=== PATIENT | male | born 1990 | race Two or more races ===

== ENCOUNTER 2018-11-27 00:47 | Inpatient (IN) | payer MEDICAID ==
[~2018-11-27] VITALS: Ht 182.9 cm; Wt 73.0 kg
[2018-11-27 01:42] LABS: BASOPHILS % (AUTO) 0.6 % (0.0-2.0); EOSINOPHILS % (AUTO) 1.9 % (1.0-6.0); HEMATOCRIT 44.8 % (41-53); HEMOGLOBIN 15.4 g/dL (13.5-17.5); LYMPHOCYTES % (AUTO) 32.1 % (22.0-44.0); MEAN CORPUSCULAR HEMOGLOBIN 29.6 pg (26.0-34.0); MEAN CORPUSCULAR HGB CONC 34.5 G/dL (31.0-37.0); MEAN CORPUSCULAR VOLUME 86 fL (80-100); MONOCYTES # (AUTO) 0.3 K/uL (0.1-1.0); MONOCYTES % (AUTO) 5.5 % (2.0-9.0); NEUTROPHILS # (AUTO) 3.8 K/uL (1.8-7.7); NEUTROPHILS % (AUTO) 59.9 % (40.0-70.0); PLATELET COUNT (AUTO) 204 K/uL (150-450); RED BLOOD CELL COUNT(AUTO) 5.22 MIL/uL (4.50-5.90); RED CELL DISTRIBUTION WIDTH 13.1 % (11.5-14.5)
[2018-11-27 01:50] LABS: ANION GAP 12 mmol/L (8-16); CARBON DIOXIDE 25 mmol/L (22-29); CHLORIDE 101 mmol/L (98-107); CREATININE 1.02 mg/dL (0.60-1.30); GLOMERULAR FILTR. RATE CALC > 60 mL/min (>60); GLUCOSE,RANDOM 106 mg/dL (70-110); POTASSIUM 3.7 mmol/L (3.5-5.1); SODIUM SERUM 138 mmol/L (136-145); UREA NITROGEN, BLOOD 18 mg/dL (7-18)
[2018-11-27 01:56] LABS: ALANINE AMINOTRANSFERASE 11 U/L (12-78); ALBUMIN 4.3 g/dL (3.4-5.0); ALKALINE PHOSPHATASE 86 U/L (46-116); ASPARTATE AMINOTRANSFERASE 15 U/L (15-37); BILIRUBIN,TOTAL 0.5 mg/dL (0.1-1.0); TOTAL PROTEIN, SERUM 7.3 g/dL (6.4-8.2)
[2018-11-27 03:15] LABS: HCG,QUANTITATIVE < 1 mIU/mL (0-6)
[2018-11-27 04:30] LABS: AMPHET/METH SCREEN,URINE NEGATIVE (NEGATIVE); BARBITURATE SCREEN, URINE NEGATIVE (NEGATIVE); BENZODIAZEPINES SCREEN,URINE NEGATIVE (NEGATIVE); CANNABINOID SCREEN,URINE NEGATIVE (NEGATIVE); COCAINE SCREEN,URINE NEGATIVE (NEGATIVE); METHADONE SCREEN, URINE NEGATIVE (NEGATIVE); OPIATE SCREEN,URINE NEGATIVE (NEGATIVE); PHENCYCLIDINE SCREEN,URINE NEGATIVE (NEGATIVE)
[2018-11-27] MEDS ORDERED: LORazepam 1 MG TABLET PO ONE (05:00)
[2018-11-27] MEDS ORDERED: ZOLPIDEM TARTRATE 10 MG TABLET PO PRN (06:00)
[2018-11-27] MEDS ORDERED: LORazepam 2 MG TABLET PO PRN (06:00)
[2018-11-27] MEDS ORDERED: HALOPERIDOL 5 MG TABLET PO PRN (06:00)
[2018-11-27 10:24] VITALS: BP 111/64
[2018-11-27] MEDS ORDERED: INFLUENZA VIRUS VACCINE QVS 2019-20 (3YR+)/PF 60 MCG/0.5 ML SYRINGE IM ONE (11:00)
[2018-11-27] MEDS: OLANZapine 5 MG TABLET PO SCH (16:19)
[2018-11-27 16:37] VITALS: BP 113/72
[2018-11-28] MEDS: OLANZapine 5 MG TABLET PO SCH ×2 (09:18→16:52)
[2018-11-28 09:47] VITALS: BP 107/62
[2018-11-28 16:00] VITALS: BP 105/64
[2018-11-29] MEDS: OLANZapine 5 MG TABLET PO SCH (08:38)
[2018-11-29 16:14] VITALS: BP 114/70
[2018-11-29] MEDS: OLANZapine 7.5 MG TABLET PO SCH (16:50)
[2018-11-29] MEDS: NICOTINE 21 MG/24 HOUR PATCH TD SCH (18:14)
[2018-11-30] MEDS: OLANZapine 7.5 MG TABLET PO SCH ×2 (08:38→16:12)
[2018-11-30 08:43] VITALS: BP 101/60
[2018-11-30] MEDS: NICOTINE 21 MG/24 HOUR PATCH TD SCH (09:05)
[2018-11-30 09:14] VITALS: BP 101/60
[2018-11-30 16:00] VITALS: BP 111/68
[2018-12-01 05:17] VITALS: BP 124/74
[2018-12-01 08:15] VITALS: BP 100/63
[2018-12-01] MEDS: NICOTINE 21 MG/24 HOUR PATCH TD SCH (08:25)
[2018-12-01 16:00] VITALS: BP 111/64
[2018-12-01] MEDS ORDERED: OLANZapine 7.5 MG TABLET PO SCH (21:00)
[2018-12-02 06:26] VITALS: BP 104/58
[2018-12-02 08:00] VITALS: BP 100/66
[2018-12-02] MEDS: NICOTINE 21 MG/24 HOUR PATCH TD SCH (09:04)
[2018-12-02] MEDS ORDERED: OLAN10TA3 PO (11:35)
== END 2018-12-02 14:45 | disposition home or self-care (01) | DRG 753 ==
LOC: EMS 00:47 → B3A 07:53
PROVIDERS: ADMIT Psychiatry & Neurology Psychiatry; ATTEND Psychiatry & Neurology Psychiatry
DX: F31.2 Bipolar disorder, current episode manic severe with psychotic features (principal); R45.851 Suicidal ideations; F12.90 Cannabis use, unspecified, uncomplicated; F41.9 Anxiety disorder, unspecified
CPT/HCPCS: 90686; G0480

== ENCOUNTER 2019-04-10 19:11 | Inpatient (IN) | payer MEDICAID ==
[~2019-04-10] VITALS: Ht 182.9 cm; Wt 34.9 kg
[~2019-04-10 19:11] MED LIST: OLAN10TA3 PO
[2019-04-10 20:36] LABS: BASOPHILS % (AUTO) 0.3 % (0.0-2.0); EOSINOPHILS % (AUTO) 0.2 % (1.0-6.0); HEMATOCRIT 44.5 % (41-53); HEMOGLOBIN 15.5 g/dL (13.5-17.5); LYMPHOCYTES # (AUTO) 1.2 K/uL (1.0-4.8); LYMPHOCYTES % (AUTO) 11.9 % (22.0-44.0); MEAN CORPUSCULAR HEMOGLOBIN 29.9 pg (26.0-34.0); MEAN CORPUSCULAR HGB CONC 34.8 G/dL (31.0-37.0); MEAN CORPUSCULAR VOLUME 86 fL (80-100); MONOCYTES # (AUTO) 0.5 K/uL (0.1-1.0); MONOCYTES % (AUTO) 4.3 % (2.0-9.0); NEUTROPHILS # (AUTO) 8.8 K/uL (1.8-7.7); NEUTROPHILS % (AUTO) 83.3 % (40.0-70.0); PLATELET COUNT (AUTO) 218 K/uL (150-450); RED BLOOD CELL COUNT(AUTO) 5.18 MIL/uL (4.50-5.90); RED CELL DISTRIBUTION WIDTH 13.1 % (11.5-14.5)
[2019-04-10 20:56] LABS: ANION GAP 9 mmol/L (8-16); CALCIUM, TOTAL 9.2 mg/dL (8.8-10.5); CARBON DIOXIDE 26 mmol/L (22-29); CHLORIDE 105 mmol/L (98-107); CREATININE 0.73 mg/dL (0.60-1.30); GLOMERULAR FILTR. RATE CALC > 60 mL/min (>60); GLUCOSE,RANDOM 98 mg/dL (70-110); POTASSIUM 4.1 mmol/L (3.5-5.1); SODIUM SERUM 140 mmol/L (136-145); UREA NITROGEN, BLOOD 10 mg/dL (7-18)
[2019-04-10 21:08] LABS: ALANINE AMINOTRANSFERASE 22 U/L (12-78); ALBUMIN 4.6 g/dL (3.4-5.0); ALKALINE PHOSPHATASE 82 U/L (46-116); ASPARTATE AMINOTRANSFERASE 13 U/L (15-37); BILIRUBIN,TOTAL 0.4 mg/dL (0.1-1.0); TOTAL PROTEIN, SERUM 7.6 g/dL (6.4-8.2)
[2019-04-11] MEDS ORDERED: HALOPERIDOL 5 MG TABLET PO PRN (04:15)
[2019-04-11] MEDS ORDERED: LORazepam 2 MG TABLET PO PRN (04:15)
[2019-04-11] MEDS ORDERED: DOCUSATE SODIUM 100 MG CAPSULE PO PRN (08:30)
[2019-04-11] MEDS ORDERED: MAGNESIUM HYDROXIDE SUSPENSION 30 ML UDCUP PO PRN (08:30)
[2019-04-11] MEDS ORDERED: PETROLATUM,WHITE 28 GM JELLY TP PRN (08:30)
[2019-04-11] MEDS ORDERED: ONDANSETRON HCL 4 MG TABLET PO PRN (08:30)
[2019-04-11] MEDS ORDERED: IBUPROFEN 400 MG TABLET PO PRN (08:30)
[2019-04-11] MEDS ORDERED: LOPERAMIDE HCL 2 MG CAPSULE PO PRN (08:30)
[2019-04-11] MEDS ORDERED: GuaiFENesin/D-METHORPHAN [SUGAR-FREE] 200-20MG/10 ML SYRUP UDCUP PO PRN (08:30)
[2019-04-11] MEDS ORDERED: MAG HYDROX/AL HYDROX/SIMETH ES 30 ML SUSPENSION UDCUP PO PRN (08:30)
[2019-04-11] MEDS ORDERED: ALBUTEROL SULFATE HFA 90 MCG/PUFF 8 GM INHALER IH PRN (08:30)
[2019-04-11] MEDS ORDERED: ACETAMINOPHEN 325 MG TABLET PO PRN (08:30)
[2019-04-11] MEDS ORDERED: CloNIDine HCL 0.1 MG TABLET PO PRN (08:30)
[2019-04-11] MEDS ORDERED: NICOTINE 14 MG/24 HOUR PATCH TD PRN (08:30)
[2019-04-11] MEDS ORDERED: INFLUENZA VIRUS VACCINE QVS 2019-20 (3YR+)/PF 60 MCG/0.5 ML SYRINGE IM ONE (11:30)
[2019-04-11] MEDS ORDERED: OLAN7.5T2 PO (13:50)
[2019-04-11 17:56] VITALS: BP 143/74
[2019-04-11] MEDS: OLANZapine 10 MG TABLET PO SCH (20:21)
[2019-04-11] MEDS: ZOLPIDEM TARTRATE 10 MG TABLET PO PRN (20:21)
[2019-04-12 09:13] VITALS: BP 90/51
[2019-04-12 09:50] VITALS: BP 98/57
[2019-04-12 17:02] VITALS: BP 102/57
[2019-04-12] MEDS: OLANZapine 10 MG TABLET PO SCH (20:22)
[2019-04-13 08:30] VITALS: BP 130/74
[2019-04-13 19:59] VITALS: BP 91/50
[2019-04-13] MEDS: OLANZapine 10 MG TABLET PO SCH (20:19)
[2019-04-14 08:42] VITALS: BP 136/79
[2019-04-14 17:15] VITALS: BP 137/87
[2019-04-14] MEDS: OLANZapine 10 MG TABLET PO SCH (20:47)
[2019-04-15 09:26] VITALS: BP 103/60
[2019-04-15] MEDS: OLANZapine 10 MG TABLET PO SCH (20:54)
[2019-04-15] MEDS: ZOLPIDEM TARTRATE 10 MG TABLET PO PRN (20:55)
[2019-04-16 08:34] VITALS: BP 98/54
[2019-04-16 19:52] VITALS: BP 103/65
[2019-04-16] MEDS: OLANZapine 10 MG TABLET PO SCH (20:13)
[2019-04-17 18:10] VITALS: BP 116/71
[2019-04-17] MEDS: OLANZapine 10 MG TABLET PO SCH (20:33)
[2019-04-18 12:32] VITALS: BP 97/60
[2019-04-18 17:16] VITALS: BP 132/78
[2019-04-18] MEDS: OLANZapine 10 MG TABLET PO SCH (20:24)
[2019-04-19 08:33] VITALS: BP 127/58
[2019-04-19] MEDS ORDERED: OLAN10TA20 PO (10:52)
== END 2019-04-19 13:50 | disposition home or self-care (01) | DRG 885 ==
LOC: EMS 19:13 → 3EI 04-11 05:00
DX: F20.0 Paranoid schizophrenia (principal); F10.10 Alcohol abuse, uncomplicated; I95.9 Hypotension, unspecified; F19.10 Other psychoactive substance abuse, uncomplicated; Z71.51 Drug abuse counseling and surveillance of drug abuser
CPT/HCPCS: G0480

== ENCOUNTER 2019-07-10 19:55 | Emergency (ER) | payer MEDICAID ==
[~2019-07-10] VITALS: Ht 182.9 cm; Wt 75.0 kg
[~2019-07-10 19:55] MED LIST changes: +OLAN10TA20 PO; -OLAN10TA3 PO
[2019-07-10 19:57] VITALS: BP 115/68
== END 2019-07-10 20:31 | disposition home or self-care (01) ==
LOC: EMS 19:56
DX: R10.32 Left lower quadrant pain (principal); F32.9 Major depressive disorder, single episode, unspecified; F20.9 Schizophrenia, unspecified; F17.210 Nicotine dependence, cigarettes, uncomplicated

== ENCOUNTER 2020-02-14 09:12 | Emergency (ER) | payer MEDICAID ==
[~2020-02-14] VITALS: Ht 177.8 cm; Wt 70.5 kg
[2020-02-14 09:45] VITALS: BP 130/77
== END 2020-02-14 10:00 | disposition home or self-care (01) ==
LOC: EMS 09:17
DX: L29.9 Pruritus, unspecified (principal); F32.9 Major depressive disorder, single episode, unspecified; F20.9 Schizophrenia, unspecified; F17.210 Nicotine dependence, cigarettes, uncomplicated
CPT/HCPCS: Z7502

== ENCOUNTER 2020-03-19 11:19 | Inpatient (IN) | payer MEDICAID ==
[~2020-03-19] VITALS: Ht 177.8 cm; Wt 59.9 kg
[2020-03-19] MEDS ORDERED: LORazepam 2 MG TABLET PO ONE (12:15)
[2020-03-19] MEDS ORDERED: DiphenhydrAMINE HCL 50 MG CAPSULE PO ONE (12:15)
[2020-03-19] MEDS ORDERED: HALOPERIDOL 5 MG TABLET PO ONE (12:15)
[2020-03-19 13:38] LABS: COVID AG,FIA SOURCE NASAL SWAB
[2020-03-19] MEDS ORDERED: HALOPERIDOL 5 MG TABLET PO PRN (14:45)
[2020-03-19] MEDS ORDERED: ZOLPIDEM TARTRATE 10 MG TABLET PO PRN (14:45)
[2020-03-19 17:53] VITALS: BP 125/85
[2020-03-19] MEDS ORDERED: INFLUENZA VIRUS VACCINE QVS 2020-21 (6MO+)/PF 60 MCG/0.5 ML SYRINGE IM ONE (21:15)
[2020-03-20 06:09] VITALS: BP 101/63
[2020-03-20] MEDS ORDERED: GuaiFENesin/D-METHORPHAN [SUGAR-FREE] 200-20MG/10 ML SYRUP UDCUP PO PRN (07:30)
[2020-03-20] MEDS ORDERED: IBUPROFEN 400 MG TABLET PO PRN (07:30)
[2020-03-20] MEDS ORDERED: LOPERAMIDE HCL 2 MG CAPSULE PO PRN (07:30)
[2020-03-20] MEDS ORDERED: DOCUSATE SODIUM 100 MG CAPSULE PO PRN (07:30)
[2020-03-20] MEDS ORDERED: MAG HYDROX/AL HYDROX/SIMETH ES 30 ML SUSPENSION UDCUP PO PRN (07:30)
[2020-03-20] MEDS ORDERED: MAGNESIUM HYDROXIDE SUSPENSION 30 ML UDCUP PO PRN (07:30)
[2020-03-20] MEDS ORDERED: ACETAMINOPHEN 325 MG TABLET PO PRN (07:30)
[2020-03-20] MEDS ORDERED: NICOTINE 14 MG/24 HOUR PATCH TD PRN (07:30)
[2020-03-20] MEDS ORDERED: ALBUTEROL SULFATE HFA 90 MCG/PUFF 8 GM INHALER IH PRN (07:30)
[2020-03-20] MEDS ORDERED: PETROLATUM,WHITE 28 GM JELLY TP PRN (07:30)
[2020-03-20] MEDS ORDERED: ONDANSETRON HCL 4 MG TABLET PO PRN (07:30)
[2020-03-20] MEDS ORDERED: CloNIDine HCL 0.1 MG TABLET PO PRN (07:30)
[2020-03-20] MEDS: NICOTINE 14 MG/24 HOUR PATCH TD SCH (09:00)
[2020-03-20 09:06] VITALS: BP 126/82
[2020-03-20 16:25] VITALS: BP 110/75
[2020-03-20] MEDS: OLANZapine 10 MG TABLET PO SCH (20:41)
[2020-03-21 06:00] VITALS: BP 108/86
[2020-03-21 08:40] VITALS: BP 105/62
[2020-03-21] MEDS: NICOTINE 14 MG/24 HOUR PATCH TD SCH (09:00)
[2020-03-21] MEDS: LORazepam 2 MG TABLET PO PRN (17:05)
[2020-03-21 17:51] VITALS: BP 100/70
[2020-03-21] MEDS: OLANZapine 10 MG TABLET PO SCH (20:38)
[2020-03-22 00:58] VITALS: BP 104/62
[2020-03-22] MEDS: NICOTINE 14 MG/24 HOUR PATCH TD SCH (08:50)
[2020-03-22 09:04] VITALS: BP 101/60
[2020-03-22 16:29] VITALS: BP 105/79
[2020-03-22] MEDS: OLANZapine 10 MG TABLET PO SCH (21:42)
[2020-03-23 05:42] VITALS: BP 108/72
[2020-03-23 08:28] VITALS: BP 106/57
[2020-03-23] MEDS: NICOTINE 14 MG/24 HOUR PATCH TD SCH (09:00)
[2020-03-23] MEDS ORDERED: DiphenhydrAMINE HCL 25 MG/10 ML ELIXIR UDCUP PO ONE (10:30)
[2020-03-23] MEDS ORDERED: DiphenhydrAMINE HCL 25 MG CAPSULE PO ONE (10:45)
[2020-03-23 16:45] VITALS: BP 100/63
[2020-03-23] MEDS ORDERED: PERMETHRIN 1% 60 ML LOTION TP ONE (18:00)
[2020-03-23] MEDS: OLANZapine 10 MG TABLET PO SCH (20:20)
[2020-03-24 01:25] VITALS: BP 100/71
[2020-03-24] MEDS: NICOTINE 14 MG/24 HOUR PATCH TD SCH (08:31)
[2020-03-24 12:21] VITALS: BP 102/71
[2020-03-24 17:21] VITALS: BP 103/66
[2020-03-24] MEDS: OLANZapine 10 MG TABLET PO SCH (20:11)
[2020-03-25] MEDS: NICOTINE 14 MG/24 HOUR PATCH TD SCH (08:34)
[2020-03-25] MEDS: MULTIVITAMINS WITH MINERALS, THERAPEUTIC TABLET PO SCH (08:39)
[2020-03-25 09:10] LABS: COVID AG,FIA SOURCE NASOPHARYNGEAL
[2020-03-25 16:35] VITALS: BP 115/71
[2020-03-25] MEDS ORDERED: PERMETHRIN 1% 60 ML LOTION TP ONE (18:30)
[2020-03-25] MEDS: OLANZapine 10 MG TABLET PO SCH (20:45)
[2020-03-26 08:47] VITALS: BP 107/62
[2020-03-26] MEDS: MULTIVITAMINS WITH MINERALS, THERAPEUTIC TABLET PO SCH (08:48)
[2020-03-26] MEDS: NICOTINE 14 MG/24 HOUR PATCH TD SCH (08:48)
[2020-03-26 17:08] VITALS: BP 104/67
[2020-03-26] MEDS: OLANZapine 10 MG TABLET PO SCH (21:35)
[2020-03-27] MEDS: NICOTINE 14 MG/24 HOUR PATCH TD SCH (09:00)
[2020-03-27] MEDS: MULTIVITAMINS WITH MINERALS, THERAPEUTIC TABLET PO SCH (09:00)
[2020-03-27 16:34] VITALS: BP 103/60
[2020-03-27] MEDS: OLANZapine 10 MG TABLET PO SCH (20:16)
[2020-03-28 01:00] VITALS: BP 110/63
[2020-03-28] MEDS: NICOTINE 14 MG/24 HOUR PATCH TD SCH (08:49)
[2020-03-28] MEDS: MULTIVITAMINS WITH MINERALS, THERAPEUTIC TABLET PO SCH (08:49)
[2020-03-28] MEDS: OLANZapine 5 MG TABLET PO SCH (13:18)
[2020-03-28 17:23] VITALS: BP 109/66
[2020-03-28] MEDS: OLANZapine 10 MG TABLET PO SCH (20:40)
[2020-03-29 00:43] VITALS: BP 104/62
[2020-03-29] MEDS: OLANZapine 5 MG TABLET PO SCH (08:08)
[2020-03-29] MEDS: NICOTINE 14 MG/24 HOUR PATCH TD SCH (08:08)
[2020-03-29] MEDS: MULTIVITAMINS WITH MINERALS, THERAPEUTIC TABLET PO SCH (08:08)
[2020-03-29 16:35] VITALS: BP 104/69
[2020-03-29] MEDS: OLANZapine 10 MG TABLET PO SCH (20:11)
[2020-03-30 00:40] VITALS: BP 102/63
[2020-03-30] MEDS: LORazepam 2 MG TABLET PO PRN (00:43)
[2020-03-30] MEDS: OLANZapine 5 MG TABLET PO SCH (08:30)
[2020-03-30] MEDS: NICOTINE 14 MG/24 HOUR PATCH TD SCH (08:30)
[2020-03-30] MEDS: MULTIVITAMINS WITH MINERALS, THERAPEUTIC TABLET PO SCH (08:30)
[2020-03-30] MEDS ORDERED: OLAN10TA20 PO (09:27)
[2020-03-30] MEDS ORDERED: OLAN5TAB27 PO (09:27)
== END 2020-03-30 13:05 | disposition home or self-care (01) | DRG 750 ==
LOC: EMS 11:19 → B2S 16:19
DX: F20.0 Paranoid schizophrenia (principal); F15.90 Other stimulant use, unspecified, uncomplicated; F32.9 Major depressive disorder, single episode, unspecified; F19.10 Other psychoactive substance abuse, uncomplicated; F17.200 Nicotine dependence, unspecified, uncomplicated; D70.9 Neutropenia, unspecified; F10.10 Alcohol abuse, uncomplicated; Y90.9 Presence of alcohol in blood, level not specified; B85.0 Pediculosis due to Pediculus humanus capitis; Z20.822 Contact with and (suspected) exposure to COVID-19; Z28.21 Immunization not carried out because of patient refusal
CPT/HCPCS: 87426; 99285; Z7502; Z7610

== ENCOUNTER 2020-08-12 18:17 | Emergency (ER) | payer MEDICAID ==
[~2020-08-12] VITALS: Ht 185.4 cm; Wt 77.3 kg
[~2020-08-12 18:17] MED LIST changes: +OLAN5TAB27 PO
[2020-08-12 20:37] LABS: BASOPHILS % (AUTO) 0.4 % (0.0-2.0); EOSINOPHILS % (AUTO) 0.9 % (1.0-6.0); HEMATOCRIT 46.9 % (41-53); HEMOGLOBIN 16.1 g/dL (13.5-17.5); LYMPHOCYTES # (AUTO) 2.1 K/uL (1.0-4.8); LYMPHOCYTES % (AUTO) 24.1 % (22.0-44.0); MEAN CORPUSCULAR HEMOGLOBIN 29.1 pg (26.0-34.0); MEAN CORPUSCULAR HGB CONC 34.2 G/dL (31.0-37.0); MEAN CORPUSCULAR VOLUME 85 fL (80-100); MONOCYTES # (AUTO) 0.6 K/uL (0.1-1.0); MONOCYTES % (AUTO) 6.9 % (2.0-9.0); NEUTROPHILS # (AUTO) 5.8 K/uL (1.8-7.7); NEUTROPHILS % (AUTO) 67.7 % (40.0-70.0); PLATELET COUNT (AUTO) 271 K/uL (150-450); RED BLOOD CELL COUNT(AUTO) 5.52 MIL/uL (4.50-5.90); RED CELL DISTRIBUTION WIDTH 12.5 % (11.5-14.5)
[2020-08-12 20:47] LABS: ANION GAP 20 mmol/L (8-16); CALCIUM, TOTAL 9.1 mg/dL (8.8-10.5); CARBON DIOXIDE 21 mmol/L (22-29); CHLORIDE 103 mmol/L (98-107); CREATININE 0.81 mg/dL (0.60-1.30); GLOMERULAR FILTR. RATE CALC > 60 mL/min (>60); GLUCOSE,RANDOM 86 mg/dL (70-110); POTASSIUM 3.7 mmol/L (3.5-5.1); SODIUM SERUM 144 mmol/L (136-145); UREA NITROGEN, BLOOD 23 mg/dL (7-18)
[2020-08-12 20:52] LABS: ALANINE AMINOTRANSFERASE 21 U/L (12-78); ALBUMIN 4.7 g/dL (3.4-5.0); ALKALINE PHOSPHATASE 91 U/L (46-116); ASPARTATE AMINOTRANSFERASE 22 U/L (15-37); BILIRUBIN,TOTAL 1.3 mg/dL (0.1-1.0); TOTAL PROTEIN, SERUM 8.1 g/dL (6.4-8.2)
[2020-08-12] MEDS ORDERED: SODIUM CHLORIDE 0.9% 1,000 ML IV ONE ×2 (21:15→22:00)
[2020-08-12 21:57] VITALS: BP 132/79
[2020-08-12 23:31] LABS: ALANINE AMINOTRANSFERASE 18 U/L (12-78); ALBUMIN 3.6 g/dL (3.4-5.0); ALKALINE PHOSPHATASE 71 U/L (46-116); ANION GAP 13 mmol/L (8-16); ASPARTATE AMINOTRANSFERASE 17 U/L (15-37); CALCIUM, TOTAL 7.9 mg/dL (8.8-10.5); CARBON DIOXIDE 20 mmol/L (22-29); CHLORIDE 108 mmol/L (98-107); CREATININE 0.68 mg/dL (0.60-1.30); GLOMERULAR FILTR. RATE CALC > 60 mL/min (>60); GLUCOSE,RANDOM 77 mg/dL (70-110); POTASSIUM 3.5 mmol/L (3.5-5.1); SODIUM SERUM 141 mmol/L (136-145); TOTAL PROTEIN, SERUM 6.4 g/dL (6.4-8.2); UREA NITROGEN, BLOOD 21 mg/dL (7-18)
== END 2020-08-12 23:54 | disposition home or self-care (01) ==
LOC: EMS 18:17
DX: F15.90 Other stimulant use, unspecified, uncomplicated (principal); R42 Dizziness and giddiness; F32.9 Major depressive disorder, single episode, unspecified; F20.9 Schizophrenia, unspecified; F17.210 Nicotine dependence, cigarettes, uncomplicated
CPT/HCPCS: 36415; 80053; 85025; 96360; 96361; 99283; G0480; J7030

== ENCOUNTER 2022-10-19 10:22 | Emergency (ER) | payer MEDICAID, OTHER ==
[~2022-10-19] VITALS: Ht 182.9 cm; Wt 84.0 kg
[~2022-10-19 10:22] MED LIST changes: +OLAN10 PO; -OLAN10TA20 PO; -OLAN5TAB27 PO; +OLAN5TAB77 PO
[2022-10-19 10:37] VITALS: BP 124/78; PULSE 94; RESP 16; TEMP 97.9
[2022-10-19 10:53] LABS: BASOPHILS % (AUTO) 0.4 % (0.0-2.0); EOSINOPHILS % (AUTO) 8.8 % (1.0-6.0); HEMATOCRIT 38.5 % (41-53); HEMOGLOBIN 13.5 g/dL (13.5-17.5); LYMPHOCYTES # (AUTO) 1.3 K/uL (1.0-4.8); LYMPHOCYTES % (AUTO) 16.4 % (22.0-44.0); MEAN CORPUSCULAR HEMOGLOBIN 28.5 pg (26.0-34.0); MEAN CORPUSCULAR VOLUME 82 fL (80-100); MONOCYTES # (AUTO) 0.7 K/uL (0.1-1.0); MONOCYTES % (AUTO) 8.4 % (2.0-9.0); NEUTROPHILS # (AUTO) 5.2 K/uL (1.8-7.7); PLATELET COUNT (AUTO) 273 K/uL (150-450); RED BLOOD CELL COUNT(AUTO) 4.71 MIL/uL (4.50-5.90); RED CELL DISTRIBUTION WIDTH 13.2 % (11.5-14.5); WHITE BLOOD COUNT (AUTO) 7.8 K/uL (4.5-11.0)
[2022-10-19 11:04] LABS: ANION GAP 12 mmol/L (8-16); CALCIUM, TOTAL 8.5 mg/dL (8.8-10.5); CARBON DIOXIDE 25 mmol/L (22-29); CHLORIDE 100 mmol/L (98-107); CREATININE 0.62 mg/dL (0.60-1.30); GLOMERULAR FILTR. RATE CALC > 60 mL/min (>60); GLUCOSE,RANDOM 144 mg/dL (70-110); POTASSIUM 3.7 mmol/L (3.5-5.1); SODIUM SERUM 136 mmol/L (136-145); UREA NITROGEN, BLOOD 11 mg/dL (7-18)
[2022-10-19 11:10] LABS: ALANINE AMINOTRANSFERASE 34 U/L (12-78); ALBUMIN 3.2 g/dL (3.4-5.0); ALKALINE PHOSPHATASE 117 U/L (46-116); ASPARTATE AMINOTRANSFERASE 19 U/L (15-37)
[2022-10-19] MEDS ORDERED: OLAN5TAB52 PO (11:12)
[2022-10-19 11:25] LABS: ALCOHOL, BLOOD (SERUM) < 3 mg/dL (0-10)
[2022-11-05] MEDS ORDERED: OLAN10TA74 PO (13:01)
[2022-11-05] MEDS ORDERED: OLAN5TAB52 PO (13:01)
== END 2022-10-19 14:45 | disposition home or self-care (01) ==
LOC: EMS 10:24
DX: F20.0 Paranoid schizophrenia (principal); F15.90 Other stimulant use, unspecified, uncomplicated; F32.A Depression, unspecified; F17.210 Nicotine dependence, cigarettes, uncomplicated
CPT/HCPCS: 80053; 85025; 36415; 99283; G0480

== ENCOUNTER 2022-12-10 10:46 | Emergency (ER) | payer OTHER ==
[~2022-12-10] VITALS: Ht 180.3 cm; Wt 65.9 kg
[~2022-12-10 10:46] MED LIST changes: -OLAN10 PO; +OLAN10TA74 PO; +OLAN5TAB52 PO; -OLAN5TAB77 PO
[2022-12-10 11:55] VITALS: BP 118/73; PULSE 89; RESP 18; TEMP 97.7
== END 2022-12-10 15:28 | disposition left against medical advice (07) ==
LOC: EMS 11:12
DX: T14.8XXA Other injury of unspecified body region, initial encounter (principal); Z53.21 Procedure and treatment not carried out due to patient leaving prior to being seen by health care provider; W57.XXXA Bitten or stung by nonvenomous insect and other nonvenomous arthropods, initial encounter; Y93.89 Activity, other specified; Y92.89 Other specified places as the place of occurrence of the external cause; Y99.8 Other external cause status
CPT/HCPCS: 99281; Z7502